=== PATIENT | female | born 1980 | race Caucasian/White ===

== ENCOUNTER 2018-12-02 17:28 | Inpatient (IN) | payer MEDICARE, MEDICAID ==
[~2018-12-02] VITALS: Ht 162.6 cm; Wt 99.4 kg
[~2018-12-02 17:28] MED LIST: BENZ1TAB70 PO; CLON.5 PO; LEVE1000 PO; LEVE500T53 PO; RISP.5 PO; TOPI25 PO
[2018-12-02] MEDS ORDERED: LORazepam 2 MG TABLET PO PRN (18:30)
[2018-12-02] MEDS ORDERED: ZOLPIDEM TARTRATE 10 MG TABLET PO PRN (18:30)
[2018-12-02] MEDS ORDERED: HALOPERIDOL 5 MG TABLET PO PRN (18:30)
[2018-12-02 18:58] VITALS: BP 108/63
[2018-12-02 19:10] LABS: BASOPHILS % (AUTO) 0.9 % (0.0-2.0); EOSINOPHILS % (AUTO) 1.5 % (1.0-6.0); HEMATOCRIT 41.2 % (36-46); HEMOGLOBIN 13.8 g/dL (12.0-16.0); LYMPHOCYTES # (AUTO) 1.5 K/uL (1.0-4.8); LYMPHOCYTES % (AUTO) 19.5 % (22.0-44.0); MEAN CORPUSCULAR HEMOGLOBIN 28.9 pg (26.0-34.0); MEAN CORPUSCULAR HGB CONC 33.4 G/dL (31.0-37.0); MEAN CORPUSCULAR VOLUME 87 fL (80-100); MONOCYTES # (AUTO) 0.5 K/uL (0.1-1.0); MONOCYTES % (AUTO) 6.6 % (2.0-9.0); NEUTROPHILS # (AUTO) 5.6 K/uL (1.8-7.7); NEUTROPHILS % (AUTO) 71.5 % (40.0-70.0); PLATELET COUNT (AUTO) 242 K/uL (150-450); RED BLOOD CELL COUNT(AUTO) 4.76 MIL/uL (4.00-5.20); RED CELL DISTRIBUTION WIDTH 12.8 % (11.5-14.5)
[2018-12-02 19:29] LABS: ALANINE AMINOTRANSFERASE 17 U/L (12-78); ALBUMIN 4.2 g/dL (3.4-5.0); ALKALINE PHOSPHATASE 60 U/L (46-116); ANION GAP 13 mmol/L (8-16); ASPARTATE AMINOTRANSFERASE 18 U/L (15-37); BILIRUBIN,TOTAL 0.5 mg/dL (0.1-1.0); CALCIUM, TOTAL 9.1 mg/dL (8.8-10.5); CARBON DIOXIDE 23 mmol/L (22-29); CHLORIDE 105 mmol/L (98-107); CREATININE 0.98 mg/dL (0.60-1.30); GLOMERULAR FILTR. RATE CALC > 60 mL/min (>60); GLUCOSE,RANDOM 69 mg/dL (70-110); POTASSIUM 3.8 mmol/L (3.5-5.1); SODIUM SERUM 141 mmol/L (136-145); TOTAL PROTEIN, SERUM 7.4 g/dL (6.4-8.2); UREA NITROGEN, BLOOD 12 mg/dL (7-18)
[2018-12-02] MEDS: LevETIRAcetam 500 MG TABLET PO SCH (20:00)
[2018-12-02] MEDS: HALOPERIDOL 5 MG TABLET PO SCH (20:49)
[2018-12-03] MEDS: RANITIDINE HCL 150 MG TABLET PO SCH ×2 (09:02→16:30)
[2018-12-03] MEDS: CITALOPRAM HYDROBROMIDE 20 MG TABLET PO SCH (09:02)
[2018-12-03] MEDS: LevETIRAcetam 500 MG TABLET PO SCH ×2 (09:02→16:30)
[2018-12-03] MEDS: TOPIRAMATE 100 MG TABLET PO SCH ×2 (09:02→16:30)
[2018-12-03 09:10] VITALS: BP 119/71
[2018-12-03] MEDS: ClonazePAM 0.5 MG TABLET PO SCH ×2 (12:02→16:30)
[2018-12-03 17:17] VITALS: BP 107/75
[2018-12-03] MEDS: HALOPERIDOL 5 MG TABLET PO SCH (20:17)
[2018-12-04 04:11] VITALS: BP 98/65
[2018-12-04 08:51] VITALS: BP 140/86
[2018-12-04] MEDS: ClonazePAM 0.5 MG TABLET PO SCH (09:54)
[2018-12-04] MEDS: LevETIRAcetam 500 MG TABLET PO SCH (09:54)
[2018-12-04] MEDS: CITALOPRAM HYDROBROMIDE 20 MG TABLET PO SCH (09:54)
[2018-12-04] MEDS: TOPIRAMATE 100 MG TABLET PO SCH (09:54)
[2018-12-04] MEDS: RANITIDINE HCL 150 MG TABLET PO SCH (09:54)
[2018-12-04] MEDS ORDERED: HALO5TAB2 PO (13:22)
[2018-12-04] MEDS ORDERED: TOPI100T37 PO (13:22)
[2018-12-04] MEDS ORDERED: CITA-106 PO (13:25)
== END 2018-12-04 14:20 | disposition home or self-care (01) | DRG 885 ==
LOC: 3EC 17:45
PROVIDERS: ADMIT Psychiatry & Neurology Psychiatry; ATTEND Psychiatry & Neurology Psychiatry
DX: F20.0 Paranoid schizophrenia (principal); E66.9 Obesity, unspecified; G40.909 Epilepsy, unspecified, not intractable, without status epilepticus; G47.00 Insomnia, unspecified; K59.00 Constipation, unspecified; Z88.1 Allergy status to other antibiotic agents; Z88.0 Allergy status to penicillin; Z88.8 Allergy status to other drugs, medicaments and biological substances; Z79.899 Other long term (current) drug therapy; Z68.37 Body mass index [BMI] 37.0-37.9, adult